=== PATIENT | female | born 1985 | race Two or more races ===

== ENCOUNTER 2016-12-24 22:09 | Emergency (ER) | payer BC ==
[~2016-12-24] VITALS: Ht 162.6 cm; Wt 74.0 kg
[2016-12-24 22:11] VITALS: Ht 162.6 cm; Wt 74.0 kg
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
[2016-12-25] MEDS ORDERED: IBUPROFEN 600 MG TAB PO ONE
[2016-12-25] MEDS ORDERED: DIAZEPAM 5 MG TAB PO ONE
[2016-12-25 00:26] LABS: URINE BLOOD (Dip) POC 2+ (NEGATIVE)
--- NOTE | 2016-12-25 01:36 | RADRPT ---
PROCEDURE: Lumbar Spine. CLINICAL INDICATION: Back pain. TECHNIQUE: Three views of the lumbar spine. COMPARISON: None available FINDINGS: There is mild thoracolumbar dextroscoliosis. The lumbar lordosis is preserved without spondylolisth esis. The vertebral body heights are maintained. No acute fracture or subluxation is seen. There ar e no significant degenerative changes. IMPRESSION: 1. No acute fracture or subluxation. 2. Mild thoracolumbar dextroscoliosis. RPTAT: HTAR .Sonu Ross MD, Date Time Electronically viewed and signed by .Sonu Ross MD, on 12/25/2016 01:36 .R/
--- NOTE | 2016-12-25 01:36 | RADRPT ---
PROCEDURE: XR Cervical Spine. CLINICAL INDICATION: Trauma, pain. TECHNIQUE: Three views of the cervical spine. COMPARISON: None. FINDINGS: There is a normal cervical lordosis. No spondylolisthesis is seen. The vertebral body heights are maintained. No acute fracture or subluxation is identified. The prevertebral soft tissues are norm al. Minimal endplate osteophytosis at C5-C6. The visualized aerodigestive tract is normal. IMPRESSION: 1. No acute fracture or subluxation of the cervical spine. RPTAT: HTAR .Sonu Ross MD, Date Time Electronically viewed and signed by .Sonu Ross MD, MD on 12/25/2016 01:35 .R/
[2016-12-25] MEDS ORDERED: DIAZ-90 PO (02:04)
[2016-12-25] MEDS ORDERED: IBUP-1542 PO (02:04)
== END 2016-12-25 02:35 | disposition home or self-care (01) ==
LOC: FTE 22:09
DX: S19.9XXA Unspecified injury of neck, initial encounter (principal); V49.49XA Driver injured in collision with other motor vehicles in traffic accident, initial encounter
CPT/HCPCS: 72040; 72100; 81003; Z7502; Z7610

== ENCOUNTER 2018-05-29 17:43 | Emergency (ER) | END 2018-05-29 22:49 | disposition home or self-care (01) ==

== ENCOUNTER 2018-08-29 01:26 | Emergency (ER) | END 2018-08-29 04:54 | disposition home or self-care (01) ==

== ENCOUNTER 2019-01-01 22:09 | Emergency (ER) | payer BC ==
[~2019-01-01] VITALS: Ht 165.1 cm; Wt 74.6 kg
[2019-01-01 22:20] VITALS: Ht 165.1 cm; Wt 74.6 kg
--- NOTE | 2019-01-01 23:12 | ERD ---
ER Documentation Chief Complaint Chief Complaint C/O FER ARM/LEG TINGLING HPI The patient is a 33-year-old female, presenting to the ER because of bilateral arm and bilateral leg numbness intermittently for the last 6 months, patient has syncope, near syncope, facial pain, neck pain, chest pain, dyspnea, abdominal p ain, vomiting, dysuria, diarrhea. She does not smoke nor drink She had a cervical MRI about 2 years ago that showed some disc protrusion ROS All systems reviewed and are negative except as per history of present illness. 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 Head: Atraumatic. Eyes: Normal Conjunctiva. ENT: Normal External Ears, Nose and Mouth. Neck: Full range of motion. No meningismus. Resp: Clear to auscultation bilaterally. Cardio: Regular rate and rhythm. Abd: Soft, non distended, normal bowel sounds, non tender. Skin: No petechiae or rashes. Back: No midline or flank tenderness. Ext: No cyanosis, or edema. Neur: Awake and alert. No focal deficit Psych: Normal Mood and Affect. Results 24 hrs Laboratory Tests Test 01/02/19 00:09 01/02/19 00:11 Bedside Urine pH (LAB) 6.0 Bedside Urine Protein (LAB) Negative Bedside Urine Glucose (UA) Negative Bedside Urine Ketones (LAB) Negative Bedside Urine Blood Trace-lysed Bedside Urine Nitrite (LAB) Negative Bedside Urine Leukocyte Esterase (L Negative POC Beta HCG, Qualitative NEGATIVE Procedures/MDM EKG: Read by emergency physician Rate/Rhythm: Normal Sinus Rhythm 78 beats/min QRS, ST, T-waves: No ST elevation, no T inversion, low voltage Impression: Abnormal EKG MEDICAL MAKING DECISION: The patient is a 33-year-old female, presenting with chronic cervical and lumbar radiculopathy, is stable for outpatient follow-up The differential diagnoses considered include but are not limited to cervical lymphadenopathy, caudal equina syndrome, spinal abscess, DJD, diskitis, lumbar radiculopathy. Departure Diagnosis: Primary Impression: Cervical radiculopathy Additional Impression: Lumbar radiculopathy Condition: Good Comments I discussed the findings with the patient. I advised the patient to follow-up with the primary physician in about 2-3 days, sooner if needed and return if any concern, advised to have cervical/lumbar MRI for further eval. Disclaimer: Inadvertent spelling and grammatical errors are likely due to EHR/dictation software use and do not reflect on the overall quality of patient care. Also, please note that the electronic time recorded on this note does not necessarily reflect the actual time of the patient encounter. EVELIA SCHAFFER MD Jan 01, 2019 23:12
[2019-01-02 00:37] VITALS: BP 126/82; PULSE 68; RESP 16
== END 2019-01-02 00:38 | disposition home or self-care (01) ==
LOC: E/R 22:09
DX: M54.12 Radiculopathy, cervical region (principal); M54.16 Radiculopathy, lumbar region; R07.9 Chest pain, unspecified
CPT/HCPCS: 81003; 81025; 93005; Z7502